=== PATIENT | male | born 1960 | race Two or more races ===

== ENCOUNTER 2024-04-21 04:49 | Inpatient (IN) | payer OTHER, MEDICARE ==
[2024-04-21] VITALS (8 sets, daily range): BP systolic 139–152; BP diastolic 88–89; PULSE 85–101; RESP 18–28; TEMP 98–98.2; O2SAT 91–100
[~2024-04-21] VITALS: Ht 182.9 cm; Wt 91.0 kg
[2024-04-21 05:48] LABS: Hemoglobin 12.8 g/dL (13.5-17.5)
[2024-04-21 05:51] LABS: Basophils # (auto) 0.1 10 ^3/uL (0-0.2); Basophils % (auto) 0.9 % (0.0-2.0); Eosinophils # (auto) 0.6 10 ^3/uL (0-0.8); Eosinophils % (auto) 3.5 % (0.0-7.0); Hematocrit 39.8 % (41.0-53.0); Lymphocytes # (auto) 2.8 10 ^3/uL (0.4-5.4); Lymphocytes % (auto) 17.2 % (10.0-50.0); Mean Corpuscular Hemoglobin 28.1 pg (28.0-32.0); Mean Corpuscular Hgb Conc. 32.2 g/dL (32.0-36.0); Monocytes # (auto) 1.6 10 ^3/uL (0-1.3); Monocytes % (auto) 10.1 % (0.0-12.0); Neutrophils % (auto) 68.3 % (37.0-80.0); Nucleated Red Blood Cells % 0.2 %; Platelet Count (auto) 618 10^3/uL (140-450); Red Blood Cells 4.57 10^6/uL (4.5-5.90); Red Cell Distribution Width 18.8 % (11.8-14.3); White Blood Cell 16.1 10^3/uL (4.4-10.8)
--- NOTE | 2024-04-21 05:55 | ECG ---
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
--- NOTE | 2024-04-21 05:57 | DVH ---
CHEST RADIOGRAPH Indication:CHEST PAIN/SOB Technique: Single frontal view of the chest was obtained COMPARISON: None FINDINGS: Lines and Tubes: None Lungs: Mild congestion Pleura: No effusion. No pneumothorax. Cardiomediastinal contours: Unremarkable Bones: Unremarkable IMPRESSION: Mild congestion or viral pneumonitis
[2024-04-21 06:03] LABS: Albumin 4.5 g/dL (3.2-4.8); Alkaline Phosphatase 78 U/L (46-116); Anion Gap 9 (5-15); Aspartate Aminotransferase 13 U/L (13-40); BUN/Creatinine Ratio 11.1 (10.0-20.0); Bilirubin, Total 0.2 mg/dL (0.2-1.0); Blood Urea Nitrogen 16 mg/dL (9-23); Calcium 9.7 mg/dL (8.7-10.4); Carbon Dioxide 25 mmol/L (20-31); Chloride 107 mmol/L (98-107); Glucose 134 mg/dL (74-106); Potassium 3.5 mmol/L (3.5-5.1); Sodium 141 mmol/L (136-145); Total Protein 7.1 g/dL (5.7-8.2)
[2024-04-21 06:15] LABS: Alanine Aminotransferase 9 U/L (7-40)
[2024-04-21] MEDS: ALBUTEROL SULF 2.5 MG/0.5ML(0.5%) NEB SOLN NEB ONE ×2 (06:39→08:15)
[2024-04-21] MEDS: IPRATROPIUM BROM 0.5 MG/2.5ML INH SOL NEB ONE ×2 (06:40→08:15)
--- NOTE | 2024-04-21 07:03 | ED.PDOC ---
HPI Comments 63-year-old male presents with a chief complaint of chest pain x 0300 onset this morning with associated SOB, hypertension, and dizziness. Patient states that his pain is localized to his sternal region, radiating into his left shoulder, describes as sharp, and rates his pain a 9 out of 10. Patient mentions that his BP has also been high since the pain began, at bedside recent BP reading was 185/93. Patient reports that the pain is made worse with deep inspiration. No other symptoms or modifying factors present at this time. Chief Complaint: Chest Pain Time Seen by MD: 06:53 Reviewed Notes: Medications, Allergies Allergies: Uncoded Allergies: VACCINES (Allergy, Unknown, 04/21/24) Information Source: Patient Mode of Arrival: Ambulatory Severity: Moderate Timing: Hours Duration: Since onset Prehospital treatment: None Location: Substernal Radiation: Shoulder (L) Quality: Sharp Onset: At Rest Cardiac Risk Factors: Diabetes PE Risk Factors: None History of: Similar pain in past Review of Systems: REVIEW OF SYSTEMS: No fever, no chills, or fatigue HEENT: No sore throat, earache, or congestion. No neck pain. Cardiac: Positive chest pain, lightheadedness and dizziness Lungs: Positive shortness of breath. No cough. GI: No nausea, no vomiting, no diarrhea, no constipation, no abdominal pain : No dysuria, frequency, or urgency. No hematuria. Musculoskeletal: No joint pain or swelling or edema. Skin: No rash or itching. Neuro: No headache, dizziness, weakness Vital Signs Vital Signs Date Time Temp Pulse Resp B/P (MAP) Pulse Ox O2 Delivery O2 Flow Rate FiO2 04/21/24 09:00 94 25 169/109 04/21/24 08:15 92 Room Air* 0 21 04/21/24 07:45 98.2 98.2 Physical Exam General: Awake, alert and oriented. No acute distress. Skin: Skin in warm, dry and intact. Nailbeds pink with no cyanosis. HEENT: The head is normocephalic and atraumatic. Conjunctivae are clear without exudates or hemorrhage. Sclera is non-icteric. EOM are intact. No signs of nystagmus. Eyelids are normal in appearance without swelling or lesions. Oral mucosa is pink and moist Neck: The neck is supple with normal range of motion. No JVD. Cardiac: Heart rate and rhythm are normal. No murmurs, gallops, or rubs are auscultated. Radial pulses 2+ and equal Respiratory: Positive expiratory wheezes throughout. Diminished lung sounds at the bases. No signs of respiratory distress. No accessory muscle use. Abdominal: Abdomen is soft, non-tender without distention. Bowel sounds are present and normoactive in all four quadrants. Extremities: Upper and lower extremities are atraumatic in appearance without deformity or edema. Neurological: The patient is awake, alert and oriented to person, place, and time with normal speech. Speech is clear. There is no facial asymmetry. Psychiatric: Appropriate mood and affect. Good judgement and insight. No visual or auditory hallucinations. Past Medical History PAST MEDICAL HISTORY: Asthma, COPD, DM Surgical History (Other): Spleenectomy Family History Family History: Reviewed,noncontributory to illness Social History Smoker: Non-Smoker Alcohol: Denies ETOH Use Drugs: Denies Drug Use Lives In: Home EKG EKG : Comments Independent interpretation rate 101, sinus tachycardia, multiple PVCs/bigeminy, prolonged QTC 523, no STEMI. Was a procedure done? Was a procedure done?: No CP Differential Dx Differential Diagnosis: Other Other Differential Diagnosis Differential diagnoses considered include acute ischemic coronary syndrome, aortic dissection, cardiac tamponade, mediastinitis, pulmonary embolus, pneumothorax, tension pneumothorax, esophageal rupture, coronary artery vasospasm, myocarditis, pericarditis, pneumonia, pulmonary edema, esophageal tear, pancreatitis, aortic stenosis, dilated cardiomyopathy, hypertrophic cardiomyopathy, mitral valve prolapse, malignancy, pleuritis, pneumomediastinum, primary pulmonary hypertension, cholecystitis, esophageal spasm, esophagus, gastritis, GERD, peptic ulcer disease, costochondritis, fibromyalgia, rib fracture, herpes zoster, radicular syndromes, thoracic outlet syndrome, somatization. X-Ray, Labs, Meds, VS Vital Signs Date Time Temp Pulse Resp B/P (MAP) Pulse Ox O2 Delivery O2 Flow Rate FiO2 04/21/24 09:00 94 25 169/109 04/21/24 08:15 18 92 Room Air* 0 21 04/21/24 08:00 99 04/21/24 07:58 94 12 152/89 04/21/24 07:57 101 04/21/24 07:45 98 28 93 Room Air* 0 21 04/21/24 07:45 98.2 98 28 152/89 (110) 93 98.2 04/21/24 06:40 20 90 Room Air* 0 21 04/21/24 06:21 89 18 174/94 (120) 94 04/21/24 06:21 89 18 94 Room Air* 0 21 04/21/24 05:47 90 04/21/24 04:55 97.6 98 18 154/86 (108) 94 04/21/24 04:53 100 Lab Test 04/21/24 08:10 04/21/24 06:15 04/21/24 04:59 Range/Units Urine Color Pending Urine Clarity Pending Urine pH Pending Urine Specific [place] Pending Urine Protein Pending Urine Ketones Pending Urine Blood Pending Urine Nitrite Pending Urine Bilirubin Pending Urine Urobilinogen Pending Urine Leukocyte Esterase Pending Urine RBC Pending Urine WBC Pending Urine Squamous Epithelial Cells Pending Urine Bacteria Pending Urine Glucose Pending Troponin I High Sensitivity 15 16 16 </=54 ng/L White Blood Count 16.1 H 4.4-10.8 10^3/uL Red Blood Count 4.57 4.5-5.90 10^6/uL Hemoglobin 12.8 L 13.5-17.5 g/dL Hematocrit 39.8 L 41.0-53.0 % Mean Corpuscular Volume 87.0 80.0-100.0 fL Mean Corpuscular Hemoglobin 28.1 28.0-32.0 pg Mean Corpuscular Hemoglobin Concent 32.2 32.0-36.0 g/dL Red Cell Distribution Width 18.8 H 11.8-14.3 % Platelet Count 618 H 140-450 10^3/uL Mean Platelet Volume 8.7 6.9-10.8 fL Neutrophils (%) (Auto) 68.3 37.0-80.0 % Lymphocytes (%) (Auto) 17.2 10.0-50.0 % Monocytes (%) (Auto) 10.1 0.0-12.0 % Eosinophils (%) (Auto) 3.5 0.0-7.0 % Basophils (%) (Auto) 0.9 0.0-2.0 % Neutrophils # (Auto) 11.0 H 1.6-8.6 10 ^3/uL Lymphocytes # (Auto) 2.8 0.4-5.4 10 ^3/uL Monocytes # (Auto) 1.6 H 0-1.3 10 ^3/uL Eosinophils # (Auto) 0.6 0-0.8 10 ^3/uL Basophils # (Auto) 0.1 0-0.2 10 ^3/uL Nucleated Red Blood Cells 0.2 % Sodium Level 141 136-145 mmol/L Potassium Level 3.5 3.5-5.1 mmol/L Chloride Level 107 98-107 mmol/L Carbon Dioxide Level 25 20-31 mmol/L Anion Gap 9 5-15 Blood Urea Nitrogen 16 9-23 mg/dL Creatinine 1.44 H 0.700-1.30 mg/dL Glomerular Filtration Rate Calc 54 >90 mL/min BUN/Creatinine Ratio 11.1 10.0-20.0 Serum Glucose 134 H 74-106 mg/dL Calcium Level 9.7 8.7-10.4 mg/dL Total Bilirubin 0.2 0.2-1.0 mg/dL Aspartate Amino Transferase (AST) 13 13-40 U/L Alanine Aminotransferase (ALT) 9 7-40 U/L Alkaline Phosphatase 78 46-116 U/L B-Type Natriuretic Peptide 124.27 0-100 pg/mL Total Protein 7.1 5.7-8.2 g/dL Albumin 4.5 3.2-4.8 g/dL Current Medications Medications (Trade) Dose Ordered Sig/Alex Route Start Time Stop Time Status Last Admin Albuterol (Ventolin Medneb) 2.5 mg ONCE ONCE NEB 04/21/24 06:30 04/21/24 06:31 DC 04/21/24 06:39 Ipratropium [place] (Atrovent Medneb) 0.5 mg ONCE ONCE NEB 04/21/24 06:30 04/21/24 06:31 DC 04/21/24 06:40 Albuterol (Ventolin Medneb) 2.5 mg ONCE ONCE NEB 04/21/24 07:00 04/21/24 07:01 DC 04/21/24 08:15 Ipratropium [place] (Atrovent Medneb) 0.5 mg ONCE ONCE NEB 04/21/24 07:00 04/21/24 07:01 DC 04/21/24 08:15 Morphine Sulfate 2 mg ONCE ONCE IV 04/21/24 07:15 04/21/24 07:16 DC 04/21/24 07:58 Acetaminophen (Tylenol Tablet) 1,000 mg ONCE ONCE PO 04/21/24 07:15 04/21/24 07:16 DC 04/21/24 07:57 Azithromycin 250 ml @ 125 mls/hr ONCE ONCE IV 04/21/24 07:30 04/21/24 09:29 DC 04/21/24 08:04 Nicotine (Nicoderm 21MG/ 24HR) 1 patch ONCE ONCE TD 04/21/24 08:15 04/21/24 08:16 DC 04/21/24 10:33 [place] [id number] Ph: [phone] DIAGNOSTIC IMAGING Diagnostic Imaging Report : [id number] Signed PATIENT: MIRIAM MARTINEZ ACCT: [id number] UNIT: [id number] : 1960 LOC: ER ROOM / BED: / AGE / SEX: 63 / M ADM STATUS: REG ER SERVICE 4 ORDERING PHYSICIAN: AGATHA TAYLOR MD PROCEDURE(s): CXR1 - CHEST XRAY 1 VIEW REASON: CHEST PAIN/SOB ORDER NUMBER(s): [id number], ACCESSION NUMBER(s): [id number] CHEST RADIOGRAPH Indication:CHEST PAIN/SOB Technique: Single frontal view of the chest was obtained COMPARISON: None FINDINGS: Lines and Tubes: None Lungs: Mild congestion Pleura: No effusion. No pneumothorax. Cardiomediastinal contours: Unremarkable Bones: Unremarkable IMPRESSION: Mild congestion or viral pneumonitis ATED BY: IMTIAZ JANE MD DICTATED DATE/TIME: 04/21/24552 SIGNED BY: IMTIAZ JANE MD SIGNED DATE/TIME: 04/21/24552 CC: Time of 1ST Reevaluation: 07:23 Reevaluation 1ST: Unchanged Patient Education/Counseling: Diagnosis, Treatment, Prognosis Family Education/Counseling: No Family Present Departure 1 Departure Time of Disposition: 08:02 Impression: Primary Impression: Chest pain Additional Impressions: Pre-syncope COPD exacerbation Disposition: ADMITTED INPATIENT Condition: Fair Comments 63-year-old male with multiple comorbidities presents with chest pain, dizziness/presyncopal symptoms, shortness of breath. Patient continues wheezing after repeated DuoNebs. EKG is concerning for bigeminy and prolonged QTC. Patient continues to report severe chest pain. Patient admitted for further treatment, evaluation and monitoring. Critical Care Note Critical Care Time?: No Stability Stability form required: No I personally scribed for CLAUDIO QUIROZ MD ([email or web address]) on 04/21/24 at 07:03. Electronically submitted by Clemente Fay ([email or web address]). I personally scribed for CLAUDIO QUIROZ MD ([email or web address]) on 04/21/24 at 07:18. Electronically submitted by Anuradha Granados ([email or web address]). I personally scribed for CLAUDIO QUIROZ MD ([email or web address]) on 04/21/24 at 12:43. Electronically submitted by Anuradha Granados ([email or web address]). CLAUDIO QUIROZ MD Apr 21, 2024 07:03
[2024-04-21] MEDS: ACETAMINOPHEN 500 MG TAB PO ONE (07:57)
[2024-04-21] MEDS: MORPHINE SULFATE INJ 2 MG/ml SYRG IV ONE (07:58)
[2024-04-21] MEDS: AZITHROMYCIN 500MG/ 250ML 250 ML IV ONE (08:04)
--- NOTE | 2024-04-21 08:58 | DVHHP2 ---
Admitting Diagnosis: Chest pain History of Present Illness 63-year-old male presents with a chief complaint of chest pain x 0300 onset this morning with associated SOB, hypertension, and dizziness. Patient states that his pain is localized to his sternal region, radiating into his left shoulder, describes as sharp, and rates his pain a 9 out of 10. Patient mentions that his BP has also been high since the pain began, at bedside recent BP reading was 185/93. Patient reports that the pain is made worse with deep inspiration. No other symptoms or modifying factors present at this time. Review of Systems: REVIEW OF SYSTEMS: No fever, no chills, or fatigue HEENT: No sore throat, earache, or congestion. No neck pain. Cardiac: Positive chest pain, lightheadedness and dizziness Lungs: Positive shortness of breath. No cough. GI: No nausea, no vomiting, no diarrhea, no constipation, no abdominal pain : No dysuria, frequency, or urgency. No hematuria. Musculoskeletal: No joint pain or swelling or edema. Skin: No rash or itching. Neuro: No headache, dizziness, weakness Past Medical History Past Medical History PAST MEDICAL HISTORY: Asthma, COPD, DM Surgical History (Other): Spleenectomy Family History Family History: Reviewed,noncontributory to illness Social History Smoker: Non-Smoker Alcohol: Denies ETOH Use Drugs: Denies Drug Use Lives In: Home Allergies: Uncoded Allergies: VACCINES (Allergy, Unknown, 04/21/24) Current Medications Current Medications Medications (Trade) Dose Ordered Sig/Alex Route PRN Reason Start Time Stop Time Status Last Admin Ceftriaxone Sodium 50 ml @ 100 mls/hr DAILY IV 04/22/24 10:00 UNV Azithromycin 250 ml @ 125 mls/hr DAILY IV 04/22/24 10:00 UNV Albuterol (Ventolin Medneb) 2.5 mg Q6H NEB 04/21/24 09:30 UNV Ipratropium [place] (Atrovent Medneb) 0.5 mg Q6H NEB 04/21/24 09:30 UNV Prednisone 50 mg DAILY PO 04/21/24 10:00 UNV Nicotine (Nicoderm 21MG/ 24HR) 1 patch DAILY TD 04/21/24 10:00 UNV Vital Signs Vital Signs Date Time Temp Pulse Resp B/P (MAP) Pulse Ox O2 Delivery O2 Flow Rate FiO2 04/21/24 08:15 18 92 Room Air* 0 21 04/21/24 08:00 99 04/21/24 07:58 152/89 04/21/24 07:45 98.2 98.2 Physical Exam Generally 63 years old male, well nourished well developed. Mild distress HEENT-atraumatic normocephalic Heart-regular rate and rhythm Lungs mild bilateral wheezing Abdomen soft nontender nondistended Musculoskeletal-no edema cyanosis Neuro-AO x3, no focal deficit Results Labs Test 04/21/24 08:10 04/21/24 04:59 Range/Units Troponin I High Sensitivity 15 </=54 ng/L White Blood Count 16.1 H 4.4-10.8 10^3/uL Red Blood Count 4.57 4.5-5.90 10^6/uL Hemoglobin 12.8 L 13.5-17.5 g/dL Hematocrit 39.8 L 41.0-53.0 % Mean Corpuscular Volume 87.0 80.0-100.0 fL Mean Corpuscular Hemoglobin 28.1 28.0-32.0 pg Mean Corpuscular Hemoglobin Concent 32.2 32.0-36.0 g/dL Red Cell Distribution Width 18.8 H 11.8-14.3 % Platelet Count 618 H 140-450 10^3/uL Mean Platelet Volume 8.7 6.9-10.8 fL Neutrophils (%) (Auto) 68.3 37.0-80.0 % Lymphocytes (%) (Auto) 17.2 10.0-50.0 % Monocytes (%) (Auto) 10.1 0.0-12.0 % Eosinophils (%) (Auto) 3.5 0.0-7.0 % Basophils (%) (Auto) 0.9 0.0-2.0 % Neutrophils # (Auto) 11.0 H 1.6-8.6 10 ^3/uL Lymphocytes # (Auto) 2.8 0.4-5.4 10 ^3/uL Monocytes # (Auto) 1.6 H 0-1.3 10 ^3/uL Eosinophils # (Auto) 0.6 0-0.8 10 ^3/uL Basophils # (Auto) 0.1 0-0.2 10 ^3/uL Nucleated Red Blood Cells 0.2 % Sodium Level 141 136-145 mmol/L Potassium Level 3.5 3.5-5.1 mmol/L Chloride Level 107 98-107 mmol/L Carbon Dioxide Level 25 20-31 mmol/L Anion Gap 9 5-15 Blood Urea Nitrogen 16 9-23 mg/dL Creatinine 1.44 H 0.700-1.30 mg/dL Glomerular Filtration Rate Calc 54 >90 mL/min BUN/Creatinine Ratio 11.1 10.0-20.0 Serum Glucose 134 H 74-106 mg/dL Calcium Level 9.7 8.7-10.4 mg/dL Total Bilirubin 0.2 0.2-1.0 mg/dL Aspartate Amino Transferase (AST) 13 13-40 U/L Alanine Aminotransferase (ALT) 9 7-40 U/L Alkaline Phosphatase 78 46-116 U/L B-Type Natriuretic Peptide 124.27 0-100 pg/mL Total Protein 7.1 5.7-8.2 g/dL Albumin 4.5 3.2-4.8 g/dL Primary Diagnosis Chest pain rule out ACS Acute COPD exacerbation likely secondary to smoking Plan He has been smoking since 16 level half pack to one pack per day. Last smoking yesterday WBC mildly elevated, chest pain currently resolved Status post azithromycin and ceftriaxone. Continue ceftriaxone and azithro mycin. Check for care. If negative discontinue antibiotics Cardiology consult Check echo of the heart to rule out ACS Start prednisone 50 mg daily, albuterol nebs, ipratropium nebs q.6 hours standing. Insulin sliding scale. Fingerstick 140-180 Monitor oxygen saturation greater than 90% Full code Lovenox for DVT prophylaxis PPI for GI prophylaxis Diabetic diet Plan discussed with: Patient Date of Service: Apr 21, 2024 Billing Provider: YANIV WHALEY MD Common Visit Codes: [id number] INP/OBS CARE (HIGH) YANIV WHALEY MD Apr 21, 2024 08:58
[2024-04-21] MEDS ORDERED: ALBUTEROL SULF 2.5 MG/0.5ML(0.5%) NEB SOLN NEB SCH (09:30)
[2024-04-21] MEDS ORDERED: IPRATROPIUM BROM 0.5 MG/2.5ML INH SOL NEB SCH (09:30)
[2024-04-21] MEDS ORDERED: HYDROmorphone HCL 2 MG/ML VL/or syr IV PRN (09:45)
[2024-04-21] MEDS ORDERED: NITROGLYCERIN 0.4 MG SL TAB SL PRN (09:45)
[2024-04-21] MEDS ORDERED: ONDANSETRON HCL 4 MG/2 ML VIAL IV PRN (09:45)
[2024-04-21] MEDS ORDERED: DEXTROSE (50%) 50ML SYRG IV PRN (09:45)
[2024-04-21] MEDS ORDERED: DOCUSATE SOD 100 MG CAP PO PRN (09:45)
[2024-04-21] MEDS: NICOTINE 21MG/24 HR TOPICAL PATCH TD SCH (10:00)
[2024-04-21] MEDS: NICOTINE 21MG/24 HR TOPICAL PATCH TD ONE (10:33)
[2024-04-21] MEDS: ALBUTEROL SULF 2.5 MG/0.5ML(0.5%) NEB SOLN NEB SCH (11:18)
[2024-04-21] MEDS: IPRATROPIUM BROM 0.5 MG/2.5ML INH SOL NEB SCH (11:18)
[2024-04-21] MEDS: InsuLIN REG 1unit/0.01ml Soln (100units/ml) SC SCH (11:58)
[2024-04-21] MEDS: ENOXAPARIN SOD 40 MG/0.4 ML SYRINGE SC SCH (11:59)
[2024-04-21] MEDS: predniSONE 20 MG TAB PO SCH (11:59)
[2024-04-21] MEDS: ACCU-CHEK COMFORT CURVE STRIP VI SCH (11:59)
[2024-04-21 12:25] LABS: COVID19 ANTIGEN SOFIA FIA NEGATIVE (NEGATIVE)
[2024-04-21 12:39] LABS: Urine Bacteria None Seen /hpf (None Seen)
[2024-04-21 13:09] LABS: Urine Blood Negative /uL (Negative); Urine Clarity Clear (Clear); Urine Color Light-Yellow (Yellow); Urine Protein, UAD 1+ (Negative); Urine Specific Gravity 1.021 (1.001-1.035); Urine Urobilinogen Normal (Negative); Urine WBC 1 /hpf (0 - 3); Urine pH 5.5 (5.0-9.0)
--- NOTE | 2024-04-21 13:18 | DVHSR ---
APPROVED REPORT EXAM: Two-dimensional and M-mode echocardiogram with Doppler and color Doppler. Blood Pressure: 152/89 mmHg INDICATION Chest Pain R/O ACS RISK FACTORS Height: 6', Weight: 200 DIMENSIONS LVDd5.3 (3.8-5.7cm)LA (2D)4.5 (1.9-4.0cm)Aortic Root3.8 (2.0-3.7cm) LVDs3.8 (2.5-4.0cm)LA (MM) (1.9-4.0cm)Aortic Cusp Exc1.8 (1.5-2.0cm) EF (%) 55.0 (55-70%)Rt. Atrium4.7 (1.9-4.0cm)Asc. Aorta cm IVSd1.0 (0.7-1.1cm)RV (D) (1.8-2.4cm) PWd1.1 (0.7-1.1cm) Mitral Valve MitralMitral Stenosis E wave0.60m/sMV Mean GR.mmHg A wave0.90m/sMV Peak GR.mmHg E/A ratio0.72D MVAcm2 Aortic Valve Aortic ValveAortic Stenosis V10.70m/Nery Mean GR.5mmHg V21.70m/Nery Peak GR.12mmHg LVOT Diameter2.6 (1.8-2.4cm)Doppler AVA2.19cm2 Pulmonic Valve V20.80m/s Tricuspid Valve TR Velocity2.20m/s [id number] Conclusion Normal left ventricular size and dimension. Normal left ventricular systolic function estimated ejec tion fraction of 50%. There is a grade 1 diastolic dysfunction. Normal right ventricular size and dimension. Normal right ventricular systolic function. Normal biatrial size and dimension. Normal aortic valve structure and function. Normal mitral valve structure and function. Normal tricuspid valve structure and function The pulmonary valve is grossly normal. No pericardial effusion.
[2024-04-21] MEDS: SODIUM CHLOR 0.9% PF (SALINE LOCK) 10ML VIAL/SYR IV SCH (14:02)
[2024-04-21] MEDS ORDERED: FURO40TA4 PO (14:17)
[2024-04-21] MEDS ORDERED: SACU1TAB7 PO (14:17)
[2024-04-21] MEDS ORDERED: EMPA1TAB PO (14:17)
[2024-04-21] MEDS ORDERED: SIMV20TA20 PO (14:17)
[2024-04-21] MEDS ORDERED: METO-289 PO (14:17)
[2024-04-21] MEDS ORDERED: SPIR25TA8 PO (14:17)
[2024-04-21] MEDS ORDERED: BUPR150T18 PO (14:17)
[2024-04-21] MEDS ORDERED: APIX5TAB PO (14:17)
--- NOTE | 2024-04-21 15:19 | DVHINCON2 ---
Date Seen: Apr 21, [address] Mclaughlin Reason for Consultation Chest pain rule out ACS History of Present Illness 63-year-old male patient with past medical history of COPD, type 2 diabetes, coronary artery disease with 40% occlusion, history of drug abuse , nicotine dependency who presents to the emergency department with a chief complaint of chest pain described as pressure-like pain that started today at 3:00 a.m., initially rated as severe and radiating to the left shoulder, constant without alleviating factors. Patient was evaluated in the ER in which the EKG showed some ischemic changes such as ST depressions in inferior leads and right axis deviation. Troponin levels and echocardiogram were unremarkable. On today's evaluation the patient has been coughing (chronic cough ) and complaining of mild chest pain (improved since he gets to the ER after breathing treatment) and shortness of breath, currently oxygen saturation is 93% on room air. Patient denies any other complaints such as fever, exacerbation of the pain on physical activity or positional changes. He also denies alleviation at rest. Patient denies recent periods of immobilization or being exposed to sick people recently. From cardiology standpoint, patient's chest pain is most likely due to acute viral pneumonitis/pneumonia/COPD exacerbation . EKG, troponin levels and recent (3 months ago) angiogram that showed 40% occlusion (per patient) patient will be re-evaluated tomorrow in the morning in the meantime we will start him on lipid lowering agents, single antiplatelet therapy will be monitoring blood pressure to keep it within normal limits. Past Medical History COPD Asthma Type 2 diabetes Coronary artery disease (40% occlusion) History of drug abuse (methamphetamines, cocaine, alcohol) Nicotine dependency Allergies: Uncoded Allergies: VACCINES (Allergy, Unknown, 04/21/24) Home Meds Reported Medications Simvastatin (Simvastatin) 20 Mg Tab, 1 TAB PO QPM, #90 TAB 1 Refill 04/21/24 Apixaban Base (ELIQUIS) 5 Mg Tab, 5 MG PO BID, TAB 04/21/24 Metoprolol Succinate (Metoprolol Succinate Er) 50 Mg Tab, 1 TAB PO DAILY, #30 TAB 5 Refills 04/21/24 Furosemide (Furosemide) 40 Mg Tab, 1 TAB PO DAILY, #30 TAB 5 Refills 04/21/24 Spironolactone (Spironolactone) 25 Mg Tab, 1 TAB PO DAILY, #90 TAB 1 Refill 04/21/24 Sacubitril-Valsartan (Entresto 49-51 mg) 1 Tab Tab, 1 TAB PO, TAB 04/21/24 Bupropion Hcl (Bupropion Hcl Xl) 150 Mg Tab, 150 MG PO, TAB 04/21/24 Empagliflozin (Jardiance) 10 Mg Tab, 10 MG PO, TAB 04/21/24 Current Medications Current Medications Medications (Trade) Dose Ordered Sig/Alex Route PRN Reason Start Time Stop Time Status Last Admin Ceftriaxone Sodium 50 ml @ 100 mls/hr DAILY IV 04/22/24 10:00 Azithromycin 250 ml @ 125 mls/hr DAILY IV 04/22/24 10:00 Albuterol (Ventolin Medneb) 2.5 mg Q6H NEB 04/21/24 09:30 04/21/24 09:40 DC Ipratropium [place] (Atrovent Medneb) 0.5 mg Q6H NEB 04/21/24 09:30 04/21/24 09:40 DC Prednisone 50 mg DAILY PO 04/21/24 10:00 04/21/24 11:59 Nicotine (Nicoderm 21MG/ 24HR) 1 patch DAILY TD 04/21/24 10:00 Sodium Chloride (Saline Lock Ns) 10 ml Q8HR IV 04/21/24 14:00 04/21/24 14:02 Docusate Sodium (Colace Capsule) 100 mg BIDPRN PRN PO FOR CONSTIPATION 04/21/24 09:45 Acetaminophen (Tylenol Tablet) 650 mg Q6HP PRN PO PAIN SCALE 1-3 OR TEMP>100.4 04/21/24 09:45 Acetaminophen/ Hydrocodone Bitart ([place] 5/325MG Tab) 1 tab Q4HP PRN PO MODERATE PAIN (4-6 PAIN SCALE) 04/21/24 09:45 Hydromorphone HCl (Dilaudid Injection) 0.5 mg Q4HP PRN IV SEVERE PAIN (7-10 PAIN SCALE) 04/21/24 09:45 Ondansetron HCl (Zofran) 4 mg Q4HP PRN IV NAUSEA / VOMITING 04/21/24 09:45 Enoxaparin Sodium (Lovenox) 40 mg DAILY SC 04/21/24 10:00 04/21/24 11:59 Nitroglycerin (Ntrostat Sublingual) 0.4 mg Q5MINP PRN SL FOR CHEST PAIN 04/21/24 09:45 Morphine Sulfate 2 mg Q30M PRN IV FOR CHEST PAIN 04/21/24 09:45 Diagnostic Test (Pha) (Accu-Chek Comfort Curve T) 1 strip ACHS 04/21/24 11:30 04/21/24 11:59 Insulin Human Regular (InsuLIN R) ACHS SC 04/21/24 11:30 04/21/24 11:58 Dextrose 50 ml UD PRN IV Blood Sugar LESS THAN 60 04/21/24 09:45 Albuterol (Ventolin Medneb) 2.5 mg Q6H NEB 04/21/24 12:00 04/21/24 11:18 Ipratropium [place] (Atrovent Medneb) 0.5 mg Q6H NEB 04/21/24 12:00 04/21/24 11:18 Apixaban (Eliquis) 5 mg BID PO 04/21/24 22:00 UNV Empaglifozin (Jardiance) 10 mg DAILY PO 04/22/24 10:00 UNV Furosemide (Lasix Tablet) 40 mg DAILY PO 04/22/24 10:00 UNV Metoprolol Succinate (Toprol Xl) 50 mg DAILY PO 04/22/24 10:00 UNV Spironolactone (Aldactone) 25 mg DAILY PO 04/22/24 10:00 UNV Patient Own Medication 1 tab QPM PO 04/21/24 18:00 UNV Sacubitril/ Valsartan (Entresto 24-26 Mg tab) 2 tab BID PO 04/21/24 22:00 UNV Review of Systems Constitutional: No: Fever, Chills, Sweats, Weakness, Malaise, Other Eyes: No: Pain, Vision change, Conjunctivae inflammation, Eyelid inflammation, Other, Redness ENT: No: Ear pain, Ear discharge, Nose pain, Nose discharge, Nose congestion, Mouth pain, Mouth swelling, Throat pain, Throat swelling, Other Respiratory: Cough present, Shortness of breath, improving No Wheezing, Hemoptysis, Pleuritic Pain, Sputum, Wheezing, Other Cardiovascular: Yes: Chest pain, pressure-like mild/moderate that radiates to the left shoulder No: Palpitations, Orthopnea, Paroxysmal Noc. Dyspnea, Edema, Lt Headedness, Other Gastrointestinal: No: Nausea, Vomiting, Abdominal Pain, Diarrhea, Constipation, Melena, Hematochezia, Other Musculoskeletal: No: other, neck pain, shoulder pain, arm pain, back pain, hand pain, leg pain, foot pain Neurological:; No: Weakness, Numbness, Incoordination, Change in speech, Confusion, Seizures Vital Signs Vital Signs Date Time Temp Pulse Resp B/P (MAP) Pulse Ox O2 Delivery O2 Flow Rate FiO2 04/21/24 14:00 90 16 137/83 (101) 93 04/21/24 11:18 Room Air 0.0 04/21/24 11:18 21 04/21/24 09:42 98.2 98.2 Physical Exam Examination General Appearance: Alert, Oriented X3, Cooperative, No acute distress HEENT: EOMI Respiratory: Clear to auscultation, Normal air movement Cardiovascular: Regular rate, Normal S1, Normal S2 Abdominal: Normal bowel sounds Extremities: No cyanosis, No edema, Normal pulses, No tenderness/swelling Skin: No rashes, No breakdown Neuro: Normal gait, Normal speech, Strength at 5/5 X4 ext, Normal tone, Sensation intact, Cranial nerves 3-12 NL, Reflexes 2+ Psych/Mental Status: Mental status NL, Mood NL Labs/Diagnostic Data Labs Test 04/21/24 11:50 04/21/24 10:30 04/21/24 08:10 04/21/24 04:59 Range/Units POC Glucose 141 H 70-106 mg/dl SARS-CoV-2 Antigen (Rapid) Negative NEGATIVE Urine Color Light-yellow Yellow Urine Clarity Clear Clear Urine pH 5.5 5.0-9.0 Urine Specific [place] 1.021 1.001-1.035 Urine Protein 1+ H Negative Urine Ketones Negative Negative Urine Blood Negative Negative /uL Urine Nitrite Negative Negative Urine Bilirubin Negative Negative Urine Urobilinogen Normal Negative mg/dL Urine Leukocyte Esterase Negative Negative /uL Urine RBC 1 0 - 3 /hpf Urine WBC 1 0 - 3 /hpf Urine Squamous Epithelial Cells None seen <5 /hpf Urine Bacteria None seen None Seen /hpf Urine Glucose 4+ H Normal mg/dL Troponin I High Sensitivity 15 </=54 ng/L White Blood Count 16.1 H 4.4-10.8 10^3/uL Red Blood Count 4.57 4.5-5.90 10^6/uL Hemoglobin 12.8 L 13.5-17.5 g/dL Hematocrit 39.8 L 41.0-53.0 % Mean Corpuscular Volume 87.0 80.0-100.0 fL Mean Corpuscular Hemoglobin 28.1 28.0-32.0 pg Mean Corpuscular Hemoglobin Concent 32.2 32.0-36.0 g/dL Red Cell Distribution Width 18.8 H 11.8-14.3 % Platelet Count 618 H 140-450 10^3/uL Mean Platelet Volume 8.7 6.9-10.8 fL Neutrophils (%) (Auto) 68.3 37.0-80.0 % Lymphocytes (%) (Auto) 17.2 10.0-50.0 % Monocytes (%) (Auto) 10.1 0.0-12.0 % Eosinophils (%) (Auto) 3.5 0.0-7.0 % Basophils (%) (Auto) 0.9 0.0-2.0 % Neutrophils # (Auto) 11.0 H 1.6-8.6 10 ^3/uL Lymphocytes # (Auto) 2.8 0.4-5.4 10 ^3/uL Monocytes # (Auto) 1.6 H 0-1.3 10 ^3/uL Eosinophils # (Auto) 0.6 0-0.8 10 ^3/uL Basophils # (Auto) 0.1 0-0.2 10 ^3/uL Nucleated Red Blood Cells 0.2 % Sodium Level 141 136-145 mmol/L Potassium Level 3.5 3.5-5.1 mmol/L Chloride Level 107 98-107 mmol/L Carbon Dioxide Level 25 20-31 mmol/L Anion Gap 9 5-15 Blood Urea Nitrogen 16 9-23 mg/dL Creatinine 1.44 H 0.700-1.30 mg/dL Glomerular Filtration Rate Calc 54 >90 mL/min BUN/Creatinine Ratio 11.1 10.0-20.0 Serum Glucose 134 H 74-106 mg/dL Calcium Level 9.7 8.7-10.4 mg/dL Total Bilirubin 0.2 0.2-1.0 mg/dL Aspartate Amino Transferase (AST) 13 13-40 U/L Alanine Aminotransferase (ALT) 9 7-40 U/L Alkaline Phosphatase 78 46-116 U/L B-Type Natriuretic Peptide 124.27 0-100 pg/mL Total Protein 7.1 5.7-8.2 g/dL Albumin 4.5 3.2-4.8 g/dL Assessment Acute chest pain likely pleuritic due to viral pneumonitis Acute hypoxemic respiratory failure likely due to Viral pneumonitis/community- acquired pneumonia Gram-positive Gram-negative Uncontrolled hypertension Acute kidney injury on chronic kidney disease likely diabetic nephropathy Heart failure preserved ejection fraction Type 2 diabetes DVT prophylaxis COPD exacerbation Nicotine dependency Plan/Recommendation Conservative management, recent angiogram showed 40% occlusion(per patient) on November/December on previous hospitalization EKG showed ST depression in inferior leads, likely chronic as troponin levels were negative and chest pain improved after breathing treatment. Echocardiogram showed 50% ejection fraction Plan: Nitroglycerin 0.4 mg p.r.n. for chest pain Blood pressure control Single antiplatelet therapy Lipid lowering agent Nicotine patch 21 mg Empiric antibiotics, per hospitalist Atorvastatin 40 mg p.o. GDMT therapy Eliquis 5 mg b.i.d. p.o. [facility] Thank you for allowing participate in this patient's care. Case discussed with Dr. Ramos Critical care, time spent 45 minutes. Plan discussed with: Patient Date of Service: Apr 21, 2024 Billing Provider: MIK RAMOS MD Cardiology Common Codes: [id number] INP/OBS CARE (High) BRISA EWING RESIDENT Apr 21, 2024 15:19
[2024-04-21] MEDS: HYDROcodone-ACET 5/325MG TAB PO PRN (17:28)
[2024-04-21] MEDS ORDERED: PATIENTS OWN MEDICATION (Simvastatin 1 TAB) PO SCH (18:00)
[2024-04-21] MEDS ORDERED: APIXABAN 5 MG TAB PO SCH (22:00)
[2024-04-21] MEDS: SACUBITRIL-VALSARTAN 24mg/26mg TAB PO SCH (22:35)
[2024-04-21] MEDS: ATORVASTATIN 20 MG TAB PO SCH (22:35)
[2024-04-22] VITALS (20 sets, daily range): BP systolic 126–168; BP diastolic 68–102; PULSE 78–98; RESP 18–20; TEMP 97.5–98.1; O2SAT 92–100
[2024-04-22] MEDS: MORPHINE SULFATE INJ 2 MG/ml SYRG IV PRN (03:53)
[2024-04-22 06:58] LABS: Basophils # (auto) 0.1 10 ^3/uL (0-0.2); Eosinophils # (auto) 0 10 ^3/uL (0-0.8); Eosinophils % (auto) 0.1 % (0.0-7.0); Hemoglobin 11.5 g/dL (13.5-17.5); Monocytes % (auto) 10.6 % (0.0-12.0); Red Blood Cells 4.12 10^6/uL (4.5-5.90)
[2024-04-22 07:01] LABS: Basophils % (auto) 0.5 % (0.0-2.0); Hematocrit 35.1 % (41.0-53.0); Lymphocytes # (auto) 2.1 10 ^3/uL (0.4-5.4); Lymphocytes % (auto) 12.1 % (10.0-50.0); Mean Corpuscular Hgb Conc. 32.9 g/dL (32.0-36.0); Mean Corpuscular Volume 85.2 fL (80.0-100.0); Monocytes # (auto) 1.9 10 ^3/uL (0-1.3); Neutrophils # (auto) 13.4 10 ^3/uL (1.6-8.6); Neutrophils % (auto) 76.7 % (37.0-80.0); Nucleated Red Blood Cells % 0.2 %; Platelet Count (auto) 552 10^3/uL (140-450); Red Cell Distribution Width 18.2 % (11.8-14.3); White Blood Cell 17.5 10^3/uL (4.4-10.8)
[2024-04-22 07:24] LABS: Alkaline Phosphatase 67 U/L (46-116); Anion Gap 9 (5-15); BUN/Creatinine Ratio 16.5 (10.0-20.0); Blood Urea Nitrogen 19 mg/dL (9-23); Calcium 9.7 mg/dL (8.7-10.4); Carbon Dioxide 25 mmol/L (20-31); Chloride 107 mmol/L (98-107); Glucose 125 mg/dL (74-106); Potassium 3.3 mmol/L (3.5-5.1); Sodium 141 mmol/L (136-145)
[2024-04-22 07:26] LABS: Albumin 4.1 g/dL (3.2-4.8); Aspartate Aminotransferase 9 U/L (13-40); Bilirubin, Total 0.3 mg/dL (0.2-1.0); Total Protein 6.6 g/dL (5.7-8.2)
[2024-04-22 07:32] LABS: Alanine Aminotransferase 9 U/L (7-40)
[2024-04-22] MEDS: FUROSEMIDE 40 MG TAB PO SCH (10:00)
[2024-04-22] MEDS: METOPROLOL SUCCINATE XL 50 MG TAB PO SCH (10:34)
[2024-04-22] MEDS: EMPAGLIFLOZIN 10 MG TAB PO SCH (10:35)
[2024-04-22] MEDS: SPIRONOLACTONE 25 MG TAB PO SCH (10:35)
[2024-04-22] MEDS: cefTRIAXone 1GM/50ML D5W 50 ML IV SCH (10:36)
[2024-04-22] MEDS: POTASSIUM EFFERVESENT TAB 25 MEQ PO ONE (10:37)
--- NOTE | 2024-04-22 10:41 | DVHPN2 ---
Subjective Patient continues to report having some shortness of breath and sharp pain with deep inspiration Reviewed: Care Plan, H&P, Labs Changes from previous H/P or p: Changes General: Per HPI Objective Vitals Vital Signs Date Time Temp Pulse Resp B/P (MAP) Pulse Ox O2 Delivery O2 Flow Rate FiO2 04/22/24 10:34 89 168/102 04/22/24 08:56 97.6 20 93 97.6 04/22/24 07:13 Room Air 0.0 04/22/24 07:13 21 Intake/Output Intake and Output 04/22/24 07:00 Intake Total 400 ml Output Total 800 ml Balance -400 ml Intake Oral 400 ml Output Urine Total 800 ml # Voids 2 General Appearance: Alert, Oriented X3, Cooperative, mild distress HEENT: Atraumatic, PERRLA Lungs: Other (Inspiratory and expiratory wheezing noted) Cardiovascular: Normal S1, Normal S2 Abdomen: Normal bowel sounds, Soft Genitourinary: No Apparent Abnormalities Musculoskeletal: Normal sensory function, Normal motor function Neuro: Normal gait, Normal speech Psych/Mental Status: Mental status NL, Mood NL Medications Current Medications Medications Dose Ordered Sig/Alex Route Start Time Stop Time Status Last Admin Dose Admin Ceftriaxone Sodium 50 ml @ 100 mls/hr DAILY IV 04/22/24 10:00 04/22/24 10:36 100 MLS/HR Azithromycin 250 ml @ 125 mls/hr DAILY IV 04/22/24 10:00 Prednisone 50 mg DAILY PO 04/21/24 10:00 04/22/24 10:34 50 MG Nicotine 1 patch DAILY TD 04/21/24 10:00 04/22/24 10:33 1 PATCH Sodium Chloride 10 ml Q8HR IV 04/21/24 14:00 04/22/24 06:00 10 ML Docusate Sodium 100 mg BIDPRN PRN PO 04/21/24 09:45 Acetaminophen 650 mg Q6HP PRN PO 04/21/24 09:45 Acetaminophen/ Hydrocodone Bitart 1 tab Q4HP PRN PO 04/21/24 09:45 04/21/24 17:28 1 TAB Hydromorphone HCl 0.5 mg Q4HP PRN IV 04/21/24 09:45 Ondansetron HCl 4 mg Q4HP PRN IV 04/21/24 09:45 Nitroglycerin 0.4 mg Q5MINP PRN SL 04/21/24 09:45 Morphine Sulfate 2 mg Q30M PRN IV 04/21/24 09:45 04/22/24 03:53 2 MG Diagnostic Test (Pha) 1 strip ACHS 04/21/24 11:30 04/21/24 22:00 1 STRIP Insulin Human Regular ACHS SC 04/21/24 11:30 04/21/24 22:38 6 UNITS Dextrose 50 ml UD PRN IV 04/21/24 09:45 Albuterol 2.5 mg Q6H NEB 04/21/24 12:00 04/22/24 07:13 2.5 MG Ipratropium [place] 0.5 mg Q6H NEB 04/21/24 12:00 04/22/24 07:13 0.5 MG Apixaban 5 mg BID PO 04/21/24 22:00 Hold Empaglifozin 10 mg DAILY PO 04/22/24 10:00 04/22/24 10:35 10 MG Furosemide 40 mg DAILY PO 04/22/24 10:00 Metoprolol Succinate 50 mg DAILY PO 04/22/24 10:00 04/22/24 10:34 50 MG Spironolactone 25 mg DAILY PO 04/22/24 10:00 04/22/24 10:35 25 MG Patient Own Medication 1 tab QPM PO 04/21/24 18:00 UNV Sacubitril/ Valsartan 2 tab BID PO 04/21/24 22:00 04/21/24 22:35 2 TAB Atorvastatin Calcium 10 mg HS PO 04/21/24 22:00 04/21/24 22:35 10 MG Budesonide 0.5 mg BID NEB 04/22/24 22:00 UNV Methylprednisolone Sodium Succinate 40 mg BID IV 04/22/24 10:45 UNV Laboratory Results Laboratory Tests 04/22/24 06:16 Chemistry Test 04/22/24 06:16 Albumin 4.1 g/dL (3.2-4.8) Calcium Level 9.7 mg/dL (8.7-10.4) Total Protein 6.6 g/dL (5.7-8.2) LFT Test 04/22/24 06:16 Alanine Aminotransferase (ALT) 9 U/L (7-40) Alkaline Phosphatase 67 U/L (46-116) Aspartate Amino Transferase (AST) 9 U/L (13-40) L Total Bilirubin 0.3 mg/dL (0.2-1.0) Urinalysis Test 04/21/24 08:10 Urine Color Light-yellow (Yellow) Urine Clarity Clear (Clear) Urine pH 5.5 (5.0-9.0) Urine Specific [place] 1.021 (1.001-1.035) Urine Protein 1+ (Negative) H Urine Ketones Negative (Negative) Urine Blood Negative /uL (Negative) Urine Nitrite Negative (Negative) Urine Bilirubin Negative (Negative) Urine Urobilinogen Normal mg/dL (Negative) Urine Leukocyte Esterase Negative /uL (Negative) Urine RBC 1 /hpf (0 - 3) Urine WBC 1 /hpf (0 - 3) Urine Squamous Epithelial Cells None seen /hpf (<5) Urine Bacteria None seen /hpf (None Seen) Urine Glucose 4+ mg/dL (Normal) H Labs and/or images reviewed: Labs reviewed by me, Image(s) reviewed by me Assessment/Plan Assessment/Plan Impression: -ACS, ruled out -chest pain, probably pleuritic -COPD with exacerbation -community-acquired pneumonia, viral in nature -nicotine dependence -primary hypertension -coronary artery disease with previous stent placement -? Paroxysmal atrial fibrillation -dyslipidemia -acute hypoxic respiratory failure Plan: -start Pulmicort, Solu-Medrol -continue bronchodilators -IV magnesium -continue antibiotic therapy with azithromycin and Rocephin -cardiology consultation: Continue beta-rupinder, ABRAHAM inhibitor -check ESR, CRP -repeat labs and chest x-ray in a.m. Total time spent with patient discussing and formulating plan of care: 35 minutes. This medical document was created using an electronic medical record system with [employer] dictation system. Although this document has been carefully reviewed, there may still be some phonetic and typographical errors. These areas are purely typographical due to imperfections of the software programs, and do not reflect any compromise in the patient's medical care. 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
[2024-04-22 11:30] LABS: Erythrocyte Sedimentation Rate 28 mm/hr (0-20)
[2024-04-22 12:04] LABS: Rapid Influenza A Negative (Negative); Rapid Influenza B Negative (Negative)
[2024-04-22] MEDS: methylPREDNISolone SOD SUCC 40 MG/ML VL IV SCH (12:18)
[2024-04-22] MEDS: AZITHROMYCIN 500MG/ 250ML 250 ML IV SCH (12:18)
--- NOTE | 2024-04-22 15:03 | MEDREC ---
[facility] Intervention Section I [facility] Intervention: Review courses of therapy (PLEASE CONSIDER SWITCHING AZITHROMYCIN TO DOXYCYCLINE DUE TO PROLONG QT INTERVAL (QTc= 507 ON 04/21)) MARTHA HOOKER Apr 22, 2024 15:03
--- NOTE | 2024-04-22 15:46 | ECG ---
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
--- NOTE | 2024-04-22 17:52 | DVHPN2 ---
Consult Progress Note Date Seen: Apr 22, 2024 Subjective Patient reports: No new complaints Other Systems: Patient was examined at bedside, he reports not having chest pain at this time, he does not complain of any new symptoms. We recommend and stress test in the outpatient. Objective vital signs Vital Sign Date Time Temp Pulse Resp B/P (MAP) Pulse Ox O2 Delivery O2 Flow Rate FiO2 04/22/24 17:00 97.5 85 20 157/98 (117) 92 97.5 04/22/24 12:29 Room Air 0.0 04/22/24 12:29 21 Total Intake and Output 04/21/24 04/21/24 04/22/24 15:00 23:00 07:00 Intake Total 400 ml Output Total 800 ml Balance -800 ml 400 ml medications Current Medications Medications Dose Ordered Sig/Alex Route Start Time Stop Time Status Last Admin Dose Admin Ceftriaxone Sodium 50 ml @ 100 mls/hr DAILY IV 04/22/24 10:00 04/22/24 10:36 100 MLS/HR Azithromycin 250 ml @ 125 mls/hr DAILY IV 04/22/24 10:00 04/22/24 12:18 125 MLS/HR Prednisone 50 mg DAILY PO 04/21/24 10:00 04/22/24 10:34 50 MG Nicotine 1 patch DAILY TD 04/21/24 10:00 04/22/24 10:33 1 PATCH Sodium Chloride 10 ml Q8HR IV 04/21/24 14:00 04/22/24 14:00 10 ML Docusate Sodium 100 mg BIDPRN PRN PO 04/21/24 09:45 Acetaminophen 650 mg Q6HP PRN PO 04/21/24 09:45 Acetaminophen/ Hydrocodone Bitart 1 tab Q4HP PRN PO 04/21/24 09:45 04/21/24 17:28 1 TAB Ondansetron HCl 4 mg Q4HP PRN IV 04/21/24 09:45 Nitroglycerin 0.4 mg Q5MINP PRN SL 04/21/24 09:45 Morphine Sulfate 2 mg Q30M PRN IV 04/21/24 09:45 04/22/24 03:53 2 MG Diagnostic Test (Pha) 1 strip ACHS 04/21/24 11:30 04/22/24 11:30 1 STRIP Insulin Human Regular ACHS SC 04/21/24 11:30 04/22/24 11:30 2 UNITS Dextrose 50 ml UD PRN IV 04/21/24 09:45 Albuterol 2.5 mg Q6H NEB 04/21/24 12:00 04/22/24 12:29 2.5 MG Ipratropium [place] 0.5 mg Q6H NEB 04/21/24 12:00 04/22/24 12:29 0.5 MG Apixaban 5 mg BID PO 04/21/24 22:00 Hold Empaglifozin 10 mg DAILY PO 04/22/24 10:00 04/22/24 10:35 10 MG Furosemide 40 mg DAILY PO 04/22/24 10:00 Metoprolol Succinate 50 mg DAILY PO 04/22/24 10:00 04/22/24 10:34 50 MG Spironolactone 25 mg DAILY PO 04/22/24 10:00 04/22/24 10:35 25 MG Patient Own Medication 1 tab QPM PO 04/21/24 18:00 UNV Sacubitril/ Valsartan 2 tab BID PO 04/21/24 22:00 04/22/24 10:56 2 TAB Atorvastatin Calcium 10 mg HS PO 04/21/24 22:00 04/21/24 22:35 10 MG Budesonide 0.5 mg BID NEB 04/22/24 22:00 Methylprednisolone Sodium Succinate 40 mg BID IV 04/22/24 10:45 04/22/24 12:18 40 MG laboratory and microbiology Laboratory Tests 04/22/24 06:16 Test 04/22/24 06:16 Range/Units Serum Glucose 125 H 74-106 mg/dL Problem List/Assessment/Plan Problem List/Assessment/Plan Acute chest pain likely pleuritic due to viral pneumonitis Acute hypoxemic respiratory failure likely due to Viral pneumonitis/community- acquired pneumonia Gram-positive Gram-negative Uncontrolled hypertension Acute kidney injury on chronic kidney disease likely diabetic nephropathy Heart failure preserved ejection fraction Type 2 diabetes DVT prophylaxis COPD exacerbation Nicotine dependency Plan/Recommendation Conservative management, recent angiogram showed 40% occlusion(per patient) on on previous hospitalization EKG showed ST depression in inferior leads, likely chronic as troponin levels were negative and chest pain improved after breathing treatment. Echocardiogram showed 50% ejection fraction Continue current medical therapy We recommend an stress test in the outpatient, follow-up with Cardiology after discharge. Thank you for allowing participate in this patient's care. There is no further workup indicated during hospitalization at this time, we are signing off. Case discussed with Dr. Ramos Critical care, time spent 45 minutes. Plan discussed with: Patient Date of Service: Apr 22, 2024 Billing Provider: MIK RAMOS MD Cardiology Common Codes: [id number] HOSP CARE([facility] BRISA EWING RESIDENT Apr 22, 2024 17:52
[2024-04-22] MEDS: MAGNESIUM SULFATE 1GM/100ML 100 ML IV ONE (18:22)
[2024-04-22] MEDS: BUDESONIDE (INHALATION) 0.5 MG/2 ML NEB NEB SCH (22:02)
[2024-04-22] MEDS: ACETAMINOPHEN 325 MG TAB PO PRN (22:30)
[2024-04-23] VITALS (15 sets, daily range): BP systolic 135–163; BP diastolic 60–97; PULSE 48–96; RESP 16–18; TEMP 97.6–98; O2SAT 93–97
[2024-04-23 07:46] LABS: Eosinophils # (auto) 0 10 ^3/uL (0-0.8); White Blood Cell 17.3 10^3/uL (4.4-10.8)
[2024-04-23 07:48] LABS: Basophils # (auto) 0 10 ^3/uL (0-0.2); Basophils % (auto) 0.2 % (0.0-2.0); Hematocrit 37.9 % (41.0-53.0); Lymphocytes % (auto) 5.9 % (10.0-50.0); Mean Corpuscular Hgb Conc. 31.6 g/dL (32.0-36.0); Mean Corpuscular Volume 85.6 fL (80.0-100.0); Monocytes # (auto) 0.7 10 ^3/uL (0-1.3); Monocytes % (auto) 3.8 % (0.0-12.0); Neutrophils # (auto) 15.6 10 ^3/uL (1.6-8.6); Neutrophils % (auto) 90.1 % (37.0-80.0); Nucleated Red Blood Cells % 0.1 %; Red Blood Cells 4.42 10^6/uL (4.5-5.90); Red Cell Distribution Width 18.7 % (11.8-14.3)
[2024-04-23 07:51] LABS: Platelet Count (auto) 567 10^3/uL (140-450)
[2024-04-23 07:59] LABS: Alanine Aminotransferase 11 U/L (7-40); Alkaline Phosphatase 64 U/L (46-116)
[2024-04-23 08:00] LABS: Albumin 4.1 g/dL (3.2-4.8); Anion Gap 8 (5-15); Aspartate Aminotransferase 10 U/L (13-40); BUN/Creatinine Ratio 17.9 (10.0-20.0); Bilirubin, Total 0.2 mg/dL (0.2-1.0); Blood Urea Nitrogen 20 mg/dL (9-23); Calcium 9.6 mg/dL (8.7-10.4); Carbon Dioxide 25 mmol/L (20-31); Chloride 108 mmol/L (98-107); Glucose 172 mg/dL (74-106); Sodium 141 mmol/L (136-145)
[2024-04-23 08:01] LABS: Total Protein 6.7 g/dL (5.7-8.2)
[2024-04-23] MEDS ORDERED: DOXY100C79 PO (10:12)
[2024-04-23] MEDS ORDERED: PRED20TA2 PO (10:12)
--- NOTE | 2024-04-23 10:20 | DVHDS2 ---
Discharge Summary Date of Admission Apr 21, 2024 at 09:33 Date of Discharge: Apr 23, 2024 Admitting Diagnosis Chest pain, COPD exacerbation Labs/Diagnostic Data: Laboratory Results Test 04/23/24 06:53 04/23/24 06:26 04/22/24 10:52 04/22/24 06:16 White Blood Count 17.3 10^3/uL (4.4-10.8) Red Blood Count 4.42 10^6/uL (4.5-5.90) Hemoglobin 12.0 g/dL (13.5-17.5) Hematocrit 37.9 % (41.0-53.0) Mean Corpuscular Volume 85.6 fL (80.0-100.0) Mean Corpuscular Hemoglobin 27.0 pg (28.0-32.0) Mean Corpuscular Hemoglobin Concent 31.6 g/dL (32.0-36.0) Red Cell Distribution Width 18.7 % (11.8-14.3) Platelet Count 567 10^3/uL (140-450) Mean Platelet Volume 8.9 fL (6.9-10.8) Neutrophils (%) (Auto) 90.1 % (37.0-80.0) Lymphocytes (%) (Auto) 5.9 % (10.0-50.0) Monocytes (%) (Auto) 3.8 % (0.0-12.0) Eosinophils (%) (Auto) 0.0 % (0.0-7.0) Basophils (%) (Auto) 0.2 % (0.0-2.0) Neutrophils # (Auto) 15.6 10 ^3/uL (1.6-8.6) Lymphocytes # (Auto) 1.0 10 ^3/uL (0.4-5.4) Monocytes # (Auto) 0.7 10 ^3/uL (0-1.3) Eosinophils # (Auto) 0 10 ^3/uL (0-0.8) Basophils # (Auto) 0 10 ^3/uL (0-0.2) Nucleated Red Blood Cells 0.1 % Sodium Level 141 mmol/L (136-145) Potassium Level 4.0 mmol/L (3.5-5.1) Chloride Level 108 mmol/L (98-107) Carbon Dioxide Level 25 mmol/L (20-31) Anion Gap 8 (5-15) Blood Urea Nitrogen 20 mg/dL (9-23) Creatinine 1.12 mg/dL (0.700-1.30) Glomerular Filtration Rate Calc 73 mL/min (>90) BUN/Creatinine Ratio 17.9 (10.0-20.0) Serum Glucose 172 mg/dL (74-106) Calcium Level 9.6 mg/dL (8.7-10.4) Total Bilirubin 0.2 mg/dL (0.2-1.0) Aspartate Amino Transferase (AST) 10 U/L (13-40) Alanine Aminotransferase (ALT) 11 U/L (7-40) Alkaline Phosphatase 64 U/L (46-116) Total Protein 6.7 g/dL (5.7-8.2) Albumin 4.1 g/dL (3.2-4.8) POC Glucose 183 mg/dl (70-106) Influenza Type A Antigen Negative (Negative) Influenza Type B Antigen Negative (Negative) Erythrocyte Sedimentation Rate 28 mm/hr (0-20) C-Reactive Protein High Sensitivity 9.80 mg/dL (<1.0) Test 04/21/24 10:30 04/21/24 08:10 04/21/24 04:59 SARS-CoV-2 Antigen (Rapid) Negative (NEGATIVE) Urine Color Light-yellow (Yellow) Urine Clarity Clear (Clear) Urine pH 5.5 (5.0-9.0) Urine Specific [place] 1.021 (1.001-1.035) Urine Protein 1+ (Negative) Urine Ketones Negative (Negative) Urine Blood Negative /uL (Negative) Urine Nitrite Negative (Negative) Urine Bilirubin Negative (Negative) Urine Urobilinogen Normal mg/dL (Negative) Urine Leukocyte Esterase Negative /uL (Negative) Urine RBC 1 /hpf (0 - 3) Urine WBC 1 /hpf (0 - 3) Urine Squamous Epithelial Cells None seen /hpf (<5) Urine Bacteria None seen /hpf (None Seen) Urine Glucose 4+ mg/dL (Normal) Troponin I High Sensitivity 15 ng/L (</=54) B-Type Natriuretic Peptide 124.27 pg/mL (0-100) Other Laboratory Tests 04/23/24 06:53 Brief Hx & Hospital Course: HPI Comments 63-year-old male presents with a chief complaint of chest pain x 0300 onset this morning with associated SOB, hypertension, and dizziness. Patient states that his pain is localized to his sternal region, radiating into his left shoulder, describes as sharp, and rates his pain a 9 out of 10. Patient mentions that his BP has also been high since the pain began, at bedside recent BP reading was 185/93. Patient reports that the pain is made worse with deep inspiration. No other symptoms or modifying factors present at this time. Course of hospitalization: Cardiology consultation has been obtained. Troponins have been negative. Chest pain associated with pulmonary disease. Chest x-ray reveals probable pneumonitis. Auscultation of the patient's lungs reveals severe inspiratory and expiratory wheezing which has been resolved with bronchodilators, inhaled corticosteroids, as well as IV Solu-Medrol. The patient now reports that he was able to ambulate normal distances without any chest pain or shortness of breath. The patient has been restarted on his home medications with respect to heart failure as well as his anticoagulation with Eliquis for his history of AFib. Echocardiogram was performed with ejection fraction found to be 50%, no abnormal while motion. The patient has been weaned off oxygen. He is agreeable to be discharged home and continue all previous home medications. The patient will also follow up with his established appointments with his PCP and broom stitcher. He will be continued on prednisone 40 mg p.o. daily x4 days, taper down to 20 mg p.o. daily x3 days. He will also be continued on antibiotic therapy with doxycycline 100 mg p.o. b.i.d. x7 days. The patient already reports having multiple modalities for COPD treatment including nebulizers, MDI as, as well as Trelegy. Physical exam General: Alert and Oriented x3. No acute distress. Well-nourished. Eyes: EOMI. Anicteric. HENT: Moist mucous membranes. Lungs: Clear to auscultation bilaterally. No accessory muscle use. Cardiovascular: Regular rate and rhythm. No murmur. No JVD. Abdomen: Soft, non-tender and non-distended. No palpable masses. Extremities: No edema. Non-tender. Skin: No rashes or lesions. Warm. Neurologic: No focal neurological deficits. CN II-XII grossly intact, but not individually tested. Psychiatric: Cooperative. Appropriate mood and affect. Total time spent with patient discussing and formulating plan of care: 35 minutes. This medical document was created using an electronic medical record system with [employer] dictation system. Although this document has been carefully reviewed, there may still be some phonetic and typographical errors. These areas are purely typographical due to imperfections of the software programs, and do not reflect any compromise in the patient's medical care. Consults/Reason for consult Cardiology: Chest pain, history of heart disease Condition at Discharge: Fair Final Diagnosis/Problems List Chest pain secondary to community-acquired pneumonia Secondary Diagnosis: -ACS, ruled out -chest pain, probably pleuritic -COPD with exacerbation -community-acquired pneumonia, viral in nature -nicotine dependence -primary hypertension -coronary artery disease with previous stent placement -? Paroxysmal atrial fibrillation -dyslipidemia -acute hypoxic respiratory failure Discharge Disposition: Home Discharge Instruct/Medications Diet: Cardiac 2g Na,low cholest Activity: No Restrictions, As Tolerated Follow Up/Referral: Follow up with PCP appointment that has been established on 05/17/2024. Follow up with Cardiology appointment on 04/29 as previously scheduled Medications: Continue all previous home medications Doxycycline 100 mg p.o. b.i.d. x7 days Prednisone 40 mg p.o. daily x4 days, then 20 mg p.o. x3 days 36 Discharge Statement: "Patient was advised to return to the ER or call 911 if any headaches, dizziness, shortness of breath, chest pain, abdominal pain, bleeding, fevers, or worsening of medical condition. Patient was counseled about treatment plan, medications, possible side effects, patientverbalized understanding. All questions were answered to the best of my ability. This discharge took greater then 30 minutes in planning, reviewing documentation, counseling the patient, and discussing with other team members." ASSESSMENT ASSESSMENT Assessment Chest pain secondary to community-acquired pneumonia Date of Service: Apr 23, 2024 Billing Provider: JESSE AGGARWAL NP Common Visit Codes: 50938-JTS/OBS DISCH DAY >30min JESSE AGGARWAL NP Apr 23, 2024 10:20
--- NOTE | 2024-04-26 12:14 | ECG ---
[facility] Test Date: 2024-04-21 Test Time: 04:53:53 Pat Name: MIRIAM MARTINEZ Department: ED Room: 0223T A Gender: M [employer]: : [id number] Requested By: EMERGENCY EMERGENCY Order Number: [id number] Reading MD: Manuel Villalpando Measurements Intervals [place] Rate: 100 P: 69 AR: 176 QRS: 111 QRSD: 137 T: 46 QT: 387 QTc: 500 Interpretive Statements Sinus tachycardia RBBB and LPFB Electronically Signed On 04-29-2024 9:24:47 PST by Manuel Villalpando Please click the below link to view image of tracing.
== END 2024-04-23 14:45 | disposition home or self-care (01) | DRG 193 ==
LOC: ER 04:49 → TELE 09:33 → TELE-CENTR 21:25
PROVIDERS: ADMIT Internal Medicine; ATTEND Nurse Practitioner Acute Care
DX: J12.9 Viral pneumonia, unspecified (principal); J96.01 Acute respiratory failure with hypoxia; J44.1 Chronic obstructive pulmonary disease with (acute) exacerbation; N17.9 Acute kidney failure, unspecified; I13.0 Hypertensive heart and chronic kidney disease with heart failure and stage 1 through stage 4 chronic kidney disease, or unspecified chronic kidney disease; I50.30 Unspecified diastolic (congestive) heart failure; J44.0 Chronic obstructive pulmonary disease with (acute) lower respiratory infection; Z20.822 Contact with and (suspected) exposure to COVID-19; E78.5 Hyperlipidemia, unspecified; I48.0 Paroxysmal atrial fibrillation; I25.10 Atherosclerotic heart disease of native coronary artery without angina pectoris; F17.200 Nicotine dependence, unspecified, uncomplicated; E11.22 Type 2 diabetes mellitus with diabetic chronic kidney disease; N18.9 Chronic kidney disease, unspecified; Z88.7 Allergy status to serum and vaccine; Z90.81 Acquired absence of spleen; Z95.5 Presence of coronary angioplasty implant and graft
CPT/HCPCS: 36415; 71045; 80053; 81001; 82962; 83880; 84484; 85025; 85652; 86141; 87426; 87804; 93005; 93306; 94640; 96365; 96375; G0378; J1815